=== PATIENT | female | born 1970 | race Caucasian/White ===

== ENCOUNTER 2018-03-11 11:20 | Emergency (ER) | payer BC ==
[2018-03-11 11:42] LABS: ADD MAN DIFF? NO
[2018-03-11 11:44] LABS: BASO % 0 % (0-3); EOS # 0.1 x10^3/uL (0.0-0.7); EOS % 1 % (0-3); HEMATOCRIT 41.6 % (36.0-47.0); HEMOGLOBIN 14.2 g/dL (12.0-15.5); LYMPH # 2.3 x10^3/uL (1.0-4.8); LYMPH % 28 % (24-48); MEAN CORPUSCULAR HEMOGLOBIN 30 pg (25-35); MEAN CORPUSCULAR HGB CONC 34 g/dL (31-37); MEAN CORPUSCULAR VOLUME 89 fL (79-100); MONO # 0.6 x10^3/uL (0.0-1.1); MONO % 7 % (0-9); NEUT # 5.4 x10^3uL (1.8-7.7); NEUT % 64 % (31-73); PLATELET COUNT 226 x10^3/uL (140-400); RED BLOOD COUNT 4.68 x10^6/uL (3.50-5.40); RED CELL DISTRIBUTION WIDTH 12.6 % (11.5-14.5); WHITE BLOOD COUNT 8.5 x10^3/uL (4.0-11.0)
[2018-03-11 11:54] LABS: D-DIMER < 0.27 ug/mlFEU (0.00-0.50)
[2018-03-11 11:55] LABS: ANION GAP 7 (6-14); BLOOD UREA NITROGEN 22 mg/dL (7-20); BUN/CREATININE RATIO 31 (6-20); CALCIUM 9.1 mg/dL (8.5-10.1); CARBON DIOXIDE 27 mmol/L (21-32); CHLORIDE 102 mmol/L (98-107); CREATININE 0.7 mg/dL (0.6-1.0); GFR 90.5; GLUCOSE 103 mg/dL (70-99); POTASSIUM 3.9 mmol/L (3.5-5.1); SODIUM 136 mmol/L (136-145)
[2018-03-11] MEDS: ASPIRIN CHEWABLE 81 MG TABLET. PO (11:56)
[2018-03-11] MEDS: IV NORMAL SALINE 1000ML BAG 1,000 ML IV ×3 (11:56→13:00)
[2018-03-11 12:01] LABS: ALBUMIN 4.1 g/dL (3.4-5.0); ALBUMIN/GLOBULIN RATIO 1.1 (1.0-1.7); ALK PHOS 67 U/L (46-116); ALT (SGPT) 56 U/L (14-59); AST (SGOT) 66 U/L (15-37); MAGNESIUM 2.1 mg/dL (1.8-2.4); TOTAL BILIRUBIN 0.4 mg/dL (0.2-1.0); TOTAL PROTEIN 7.9 g/dL (6.4-8.2)
[2018-03-11 12:03] LABS: TROPONINI < 0.017 ng/mL (0.000-0.055)
[2018-03-11 12:11] LABS: CKMB INDEX 0.1 % (0-4); CREATINE KINASE 1150 U/L (26-192)
== END 2018-03-11 14:00 | disposition home or self-care (01) ==
LOC: ER 11:20
DX: M62.82 Rhabdomyolysis (principal); M54.6 Pain in thoracic spine; R07.89 Other chest pain; F17.210 Nicotine dependence, cigarettes, uncomplicated; E78.00 Pure hypercholesterolemia, unspecified; Z88.1 Allergy status to other antibiotic agents; Z88.2 Allergy status to sulfonamides; Z88.0 Allergy status to penicillin; Z90.710 Acquired absence of both cervix and uterus
CPT/HCPCS: 36415; 71046; 80053; 82553; 83735; 84484; 85025; 85379; 93005; 99285-25; J7030

== ENCOUNTER 2019-03-25 13:21 | Emergency (ER) | payer BC ==
[~2019-03-25] VITALS: Ht 160 cm; Wt 67.6 kg
[~2019-03-25 13:21] MED LIST: ASPI-482 PO; ATOR10TA60 PO; CYCL10TA2 PO; DULO60CA6 PO; OMEP40CA5 PO
[2019-03-25 14:24] LABS: BASO # 0.1 x10^3/uL (0.0-0.2); BASO % 1 % (0-3); EOS # 0.2 x10^3/uL (0.0-0.7); EOS % 3 % (0-3); HEMATOCRIT 41.8 % (36.0-47.0); HEMOGLOBIN 14.4 g/dL (12.0-15.5); LYMPH % 36 % (24-48); MEAN CORPUSCULAR HEMOGLOBIN 30 pg (25-35); MEAN CORPUSCULAR HGB CONC 34 g/dL (31-37); MEAN CORPUSCULAR VOLUME 88 fL (79-100); MONO # 0.6 x10^3/uL (0.0-1.1); MONO % 7 % (0-9); NEUT # 4.4 x10^3uL (1.8-7.7); NEUT % 53 % (31-73); PLATELET COUNT 242 x10^3/uL (140-400); RED BLOOD COUNT 4.75 x10^6/uL (3.50-5.40); RED CELL DISTRIBUTION WIDTH 12.9 % (11.5-14.5); WHITE BLOOD COUNT 8.3 x10^3/uL (4.0-11.0)
[2019-03-25 14:26] LABS: BILIRUBIN,URINE NEGATIVE (NEG); CLARITY,URINE CLEAR; COLOR,URINE YELLOW; NITRITE,URINE NEGATIVE (NEG); PROTEIN,URINE NEGATIVE (NEG-TRACE); UROBILINOGEN,URINE 0.2 mg/dL (0.2 mg/dL)
[2019-03-25] MEDS: ONDANSETRON PF 4 MG/2 ML VIAL. IV ONE (14:27)
[2019-03-25] MEDS: KETOROLAC 30 MG/ML VIAL. IV ONE (14:28)
[2019-03-25] MEDS: IV NORMAL SALINE 1000ML BAG 1,000 ML IV SCH (14:28)
[2019-03-25 14:30] LABS: CALCIUM 9.5 mg/dL (8.5-10.1); CREATININE 0.9 mg/dL (0.6-1.0); GFR 67.4; POTASSIUM 3.8 mmol/L (3.5-5.1)
[2019-03-25 14:35] LABS: ALBUMIN 4.2 g/dL (3.4-5.0); ALBUMIN/GLOBULIN RATIO 1.2 (1.0-1.7); TOTAL BILIRUBIN 0.4 mg/dL (0.2-1.0); TOTAL PROTEIN 7.8 g/dL (6.4-8.2)
--- NOTE | 2019-03-25 14:36 | PHYS DOC ---
Past Medical History Past Medical History: Fibromyalgia, High Cholesterol Past Surgical History: Hysterectomy Additional Past Surgical Histo: CARDIAC CATH Alcohol Use: None Drug Use: None Adult General Chief Complaint Chief Complaint: ABDOMINAL PAIN HPI HPI Patient is a 48 year old female who presents with complaining of abdominal pain. Patient complaining of intermittent episodes of apparently some of abdominal pain for the last 2 weeks that usually happen after eating and lasts about couple hours and associated with nausea and radiation of pain to her shoulder blade. Patient states she usually has a bowel movement every other day and did not have any bowel movement for one week and took laxative one week ago and had episodes of diarrhea that improved spontaneously and re started today again. Patient states the pain is sometimes as high as 9/10 and rated her pain 6/10 at arrival to ER. Patient denies fever and chills, losing weight, fever and chills, urinary symptom. Patient had total hysterectomy and oophorectomy. Review of Systems Review of Systems Constitutional: Denies fever or chills [] Eyes: Denies change in visual acuity, redness, or eye pain [] HENT: Denies nasal congestion or sore throat [] Respiratory: Denies cough or shortness of breath [] Cardiovascular: No additional information not addressed in HPI [] GI: Reports abdominal pain, nausea, vomiting, diarrhea [] : Denies dysuria or hematuria [] Musculoskeletal: Denies back pain or joint pain [] Integument: Denies rash or skin lesions [] Neurologic: Denies headache, focal weakness or sensory changes [] Endocrine: Denies polyuria or polydipsia [] All other systems were reviewed and found to be within normal limits, except as documented in this note. Current Medications Current Medications Current Medications Medications (Trade) Dose Ordered Sig/[facility] Start Time Stop Time Status Last Admin Dose Admin Ketorolac Tromethamine (Toradol 30mg Vial) 30 mg 1X ONCE 03/25/19 14:15 03/25/19 14:18 DC 03/25/19 14:28 30 MG Ondansetron HCl (Zofran) 4 mg 1X ONCE 03/25/19 14:15 03/25/19 14:18 DC 03/25/19 14:27 4 MG Sodium Chloride 1,000 ml @ 1,000 mls/hr Q1H 03/25/19 14:13 03/25/19 15:12 DC 03/25/19 14:28 1,000 MLS/HR Allergies Allergies Allergies Coded Allergies Type Severity Reaction Last Updated Verified sulfamethoxazole Allergy Intermediate Rash 10/02/15 Yes trimethoprim Allergy Intermediate Rash 10/02/15 Yes erythromycin base Adverse Reaction Intermediate rash 10/02/15 Yes Physical Exam Physical Exam Constitutional: Well developed, well nourished, mild distress, non-toxic appearance. [] HENT: Normocephalic, atraumatic, oropharynx moist. Eyes: PERRLA, EOMI, conjunctiva normal, no discharge. [] Neck: Normal range of motion, no tenderness, supple, no stridor. [] Cardiovascular:Heart rate regular rhythm, no murmur [] Lungs & Thorax: Bilateral breath sounds clear to auscultation [] Abdomen: Bowel sounds normal, soft, right upper quadrant guarding, no tenderness, no masses, no pulsatile masses. [] Skin: Warm, dry, no erythema, no rash. [] Back: No tenderness, no CVA tenderness. [] Extremities: No tenderness, no cyanosis, no clubbing, ROM intact, no edema. [] Neurologic: Alert and oriented X 3, normal motor function, normal sensory function, no focal deficits noted. [] Psychologic: Affect normal, judgement normal, mood normal. [] Current Patient Data Vital Signs Vital Signs Date Time Temp Pulse Resp B/P (MAP) Pulse Ox O2 Delivery O2 Flow Rate FiO2 03/25/19 16:27 86 122/85 (97) 95 Room Air 03/25/19 14:02 97.6 20 97.6 Lab Values Laboratory Tests Test 03/25/19 14:03 White Blood Count 8.3 x10^3/uL (4.0-11.0) Red Blood Count 4.75 x10^6/uL (3.50-5.40) Hemoglobin 14.4 g/dL (12.0-15.5) Hematocrit 41.8 % (36.0-47.0) Mean Corpuscular Volume 88 fL (79-100) Mean Corpuscular Hemoglobin 30 pg (25-35) Mean Corpuscular Hemoglobin Concent 34 g/dL (31-37) Red Cell Distribution Width 12.9 % (11.5-14.5) Platelet Count 242 x10^3/uL (140-400) Neutrophils (%) (Auto) 53 % (31-73) Lymphocytes (%) (Auto) 36 % (24-48) Monocytes (%) (Auto) 7 % (0-9) Eosinophils (%) (Auto) 3 % (0-3) Basophils (%) (Auto) 1 % (0-3) Neutrophils # (Auto) 4.4 x10^3uL (1.8-7.7) Lymphocytes # (Auto) 3.0 x10^3/uL (1.0-4.8) Monocytes # (Auto) 0.6 x10^3/uL (0.0-1.1) Eosinophils # (Auto) 0.2 x10^3/uL (0.0-0.7) Basophils # (Auto) 0.1 x10^3/uL (0.0-0.2) Urine Collection Type Unknown Urine Color Yellow Urine Clarity Clear Urine pH 5.0 Urine Specific [place] 1.020 Urine Protein Negative mg/dL (NEG-TRACE) Urine Glucose (UA) Negative mg/dL (NEG) Urine Ketones (Stick) Negative mg/dL (NEG) Urine Blood Trace (NEG) Urine Nitrite Negative (NEG) Urine Bilirubin Negative (NEG) Urine Urobilinogen Dipstick 0.2 mg/dL (0.2 mg/dL) Urine Leukocyte Esterase Negative (NEG) Urine RBC 1-2 /HPF (0-2) Urine WBC Occ /HPF (0-4) Urine Squamous Epithelial Cells Mod /LPF Urine Bacteria Few /HPF (0-FEW) Urine Mucus Mod /LPF Sodium Level 143 mmol/L (136-145) Potassium Level 3.8 mmol/L (3.5-5.1) Chloride Level 105 mmol/L (98-107) Carbon Dioxide Level 27 mmol/L (21-32) Anion Gap 11 (6-14) Blood Urea Nitrogen 15 mg/dL (7-20) Creatinine 0.9 mg/dL (0.6-1.0) Estimated GFR (Cockcroft-Gault) 67.4 BUN/Creatinine Ratio 17 (6-20) Glucose Level 106 mg/dL (70-99) H Calcium Level 9.5 mg/dL (8.5-10.1) Total Bilirubin 0.4 mg/dL (0.2-1.0) Aspartate Amino Transferase (AST) 23 U/L (15-37) Alanine Aminotransferase (ALT) 35 U/L (14-59) Alkaline Phosphatase 74 U/L (46-116) Total Protein 7.8 g/dL (6.4-8.2) Albumin 4.2 g/dL (3.4-5.0) Albumin/Globulin Ratio 1.2 (1.0-1.7) Lipase 134 U/L (73-393) Laboratory Tests 03/25/19 14:03 Laboratory Tests 03/25/19 14:03 EKG EKG [] Radiology/Procedures Radiology/Procedures [facility] [address] [place] [address] IMAGING REPORT Signed PATIENT: ABDIRAHMAN HAMILTON V ACCOUNT: [id number] : 1970 LOCATION: ER AGE: 48 SEX: F EXAM STATUS: REG ER ORD. PHYSICIAN: SOFIA JUNIOR MD REASON: upper abdominal pain after eating PROCEDURE: ABDOMEN LTD Right upper quadrant abdominal ultrasound History: Abdominal pain. Comparison: None. Technique: Transabdominal ultrasound images are obtained. Findings: Patient nothing by mouth x2 hours, limited scan due to overlying bowel gas. Visualized pancreas is unremarkable. Liver is normal in echogenicity. Right hepatic lobe measures 14 cm. Portal flow is hepatopedal. No gallbladder wall thickening or cholelithiasis. Sonographic Weems sign is negative. Common bile duct caliber is normal measuring 4 mm in diameter. The right kidney measures 9.9 cm in length and is without evidence of obstruction. IVC is patent. IMPRESSION: Unremarkable right upper quadrant ultrasound. Electronically signed by: Stevie Adair MD (03/25/2019 3:36 PM) [id number] DICTATED and SIGNED BY: STEVIE ADAIR MD DATE: 03/25/19 1536 Course & Med Decision Making Course & Med Decision Making Pertinent Labs and Imaging studies reviewed. (See chart for details) discharge: I've spoken with the patient and/or caregivers. I've explained the patient's condition, diagnosis and treatment plan based on information available to me at this time. I've answered the patient's and/or caregivers questions and addressed any concerns. The patient and/or caregivers have a good understanding the patient's diagnosis, condition and treatment plan as can be expected at this point. Vital signs have been stabilized. The patient's condition is stable for discharge from the emergency department. The patient will pursue further outpatient evaluation with her primary care provider or other designated consulting physician as outlined in the discharge instructions. Patient and/or caregivers are agreeable to this plan of care and follow-up instructions have been explained in detail. The patient and/or car egivers have received these instructions in written format and expressed understanding of these discharge instructions. The patient and her caregivers are aware that if any significant change in condition or worsening of symptoms should prompt him to immediately return to this of the closest emergency department. If an emergent department is not readily available I would encourage him to call 911. Dragon Disclaimer Dragon Disclaimer This electronic medical record was generated, in whole or in part, using a voice recognition dictation system. Departure Departure Impression: Primary Impression: Abdominal pain Additional Impression: Alternating constipation and diarrhea Disposition: HOME, SELF-CARE (at 1608) Condition: IMPROVED Referrals: ASHA HELMS MD (PCP) Patient Instructions: Abdominal Pain, Diarrhea Additional Instructions: Drink plenty of liquids Follow-up with your primary care physician in 2-3 days for evaluation of possible IBS (irritable bowel syndrome) Return to ER if not getting better Scripts Hydrocodone/Apap 5-325 (NORCO 5-325 TABLET) 1 Each Tablet 1 TAB PO PRN Q6HRS PRN for PAIN, #14 TAB 0 Refills Prov: SOFIA JUNIOR MD 03/25/19 Problem Qualifiers Primary Impression: Abdominal pain Abdominal location: epigastric Qualified Codes: R10.13 - Epigastric pain SOFIA JUNIOR MD March 25, 2019 14:36
[2019-03-25 14:54] LABS: BACTERIA,URINE FEW /HPF (0-FEW); SQUAMOUS EPITHELIAL CELL,UR MOD /LPF; WBC,URINE OCC /HPF (0-4)
--- NOTE | 2019-03-25 15:39 | RAD ---
Right upper quadrant abdominal ultrasound History: Abdominal pain. Comparison: None. Technique: Transabdominal ultrasound images are obtained. Findings: Patient nothing by mouth x2 hours, limited scan due to overlying bowel gas. Visualized pancreas is unremarkable. Liver is normal in echogenicity. Right hepatic lobe measures 14 cm. Portal flow is hepatopedal. No gallbladder wall thickening or cholelithiasis. Sonographic Weems sign is negative. Common bile duct caliber is normal measuring 4 mm in diameter. The right kidney measures 9.9 cm in length and is without evidence of obstruction. IVC is patent. IMPRESSION: Unremarkable right upper quadrant ultrasound. Electronically signed by: Stevie Adair MD (03/25/2019 3:36 PM) [id number]
[2019-03-25] MEDS ORDERED: HYDR-3164 PO (16:11)
[2019-03-25 16:27] VITALS: BP 122/85
== END 2019-03-25 16:55 | disposition home or self-care (01) ==
LOC: ER 13:21
DX: K58.2 Mixed irritable bowel syndrome (principal); R11.2 Nausea with vomiting, unspecified; R50.9 Fever, unspecified; E78.00 Pure hypercholesterolemia, unspecified; Z90.710 Acquired absence of both cervix and uterus; Z88.2 Allergy status to sulfonamides; Z88.1 Allergy status to other antibiotic agents
CPT/HCPCS: 36415; 76705; 80053; 81001; 83690; 85025; 96361; 96374; 96375; 99285; J1885; J2405; J7030

== ENCOUNTER 2019-08-11 08:59 | Day surgery (SDC) | payer BC ==
[~2019-08-11] VITALS: Ht 160 cm; Wt 68.0 kg
[~2019-08-11 08:59] MED LIST changes: +DEXAMETHASONE SOD PHOS 4 MG/ML VIAL ONE; +HYDR-3164 PO; +HYDROmorphone 2 MG/ML VIAL IV PRN; +IV RINGERS,LACTATED 1000ML 1,000 ML IV SCH; +LIDOCAINE 1% PF 2 ML VIAL. ID PRN; +LIDOCAINE 2% PF 5 ML VIAL. ONE; +MORPHINE SULFATE 2 MG/ML VIAL. IV PRN; +OMEP40CA45 PO; -OMEP40CA5 PO; +ONDANSETRON PF 4 MG/2 ML VIAL. IV PRN; +ONDANSETRON PF 4 MG/2 ML VIAL. ONE; +PROCHLORPERAZINE 10 MG/2 ML VIAL. IV PRN; +PROPOFOL 20 ML IV ONE; +fentaNYL PF VIAL 100 MCG/2 ML VIAL IV PRN; +fentaNYL PF VIAL 100 MCG/2 ML VIAL ONE
[2019-08-11] MEDS ORDERED: MIDAZOLAM HCL/PF 2 MG/2 ML VIAL. ONE (09:50)
[2019-08-11] MEDS ORDERED: KETOROLAC 30 MG/ML VIAL. ONE (09:51)
--- NOTE | 2019-08-11 09:51 | DISCH ---
DISCHARGE INSTRUCTIONS Condition on Discharge Condition on Discharge: Stable Activity After Discharge Activity Instructions for Disc: Activity as tolerated Bathing Instructions: No Tub Bath until see Lifting Instructions after Dis: No heavy lifting, No pulling or pushing, Do not lift >10 pounds Driving Instructions after Dis: Do not drive today Weight Bearing Status after Di: Full weight bearing, As tolerated Diet after Discharge Diet after Discharge: Cardiac Diet Texture: Regular Liquid Texture: Thin Liquid Wound Incision Care Wound/Incision Care: Ice to area for comfort, Keep wound/cast CDI, Keep wound e levated, Change dressing Other wound/incision instructi: okay to change dressing after 2 days Checks after Discharge Checks after discharge: Check blood press - daily, Check your Temp as needed Contacting the DRCamacho after DC Call your doctor for: Concerns you may have Follow-Up Follow up with: Perla in 2 weeks NAEL FARRELL II, MD Aug 11, 2019 09:51
[2019-08-11] MEDS ORDERED: LIDOCAINE 1% PF 30 ML VIAL. ONE (09:58)
[2019-08-11] MEDS ORDERED: LIDOCAINE 1% 20 ML VIAL. ONE (10:16)
[2019-08-11] MEDS ORDERED: BUPIVACAINE MPF 0.5% 30 ML VIAL. ONE (10:16)
[2019-08-11] MEDS ORDERED: HYDR-3164 PO (11:30)
[2019-08-11] MEDS ORDERED: DOCU-109 PO (11:30)
--- NOTE | 2019-08-11 11:30 | PDOC4 ---
Operative Note Operative Note Date of procedure: 08/11/2019 Surgeon: Reji Farrell Preoperative diagnosis: Right carpal tunnel syndrome Postoperative diagnosis: Same Procedure performed: Open right carpal tunnel release Anesthesia: Abhinav block with sedation Findings: normal appearing median nerve Blood loss: 2 ml Tourniquet time: 20 minutes Complications: none Reason for procedure: Patient is very pleasant individual who has had long- standing symptoms consistent with their electromyographically proven EMG diagnosis of carpal tunnel syndrome. We had tried and failed conservative therapies and had a discussion of the risks, benefits, alternatives to the above surgery and they wished to proceed. Description of procedure: Patient was greeted in the preoperative area by myself for the correct extremity was verified and marked. They were then taken back to the operative suite, antibiotics were started as they were brought back. Once in the operating room, patient was transferred gently supine to the operating room table. The hand board attached and was applied to the operating room table. She underwent successful induction of a [place] block followed by sedation. The right upper extremity was then prepped and draped in our usual sterile fashion and we conducted our standard preoperative timeout. After this, I made an incision over the transverse carpal ligament from the distal wrist crease into the palm through a palmar crease. I incised skin with a scalpel and dissected subc utaneous tissue with a curved hemostat. I used bipolar cautery for hemostasis. Identified the palmar fascia and incised this in line with the skin incision and then placed myself retaining retractor. I identified the transverse carpal ligament and incised this with a scalpel. I then placed a Ragnell retractor in the distal portion of the incision, spread above and below small remaining portion of the transverse carpal ligament and transected this with a tenotomy scissors into the palm. After this, I repeated this maneuver and an ulnar directed fashion to release the distal antebrachial fascia at the proximal portion of the incision. I then palpated along the course of the median nerve with the tip of the tenotomies to help ensure that accomplished a complete release. The operative field was then irrigated out with sterile saline. After this, skin was closed with 3-0 nylon in a mattress fashion. A sterile bulky soft dressing was then applied to the patient�s hand and wrist. The tourniquet was let down, hemostasis had been achieved with electrocautery. Patient tolerated surgery well. No complications. At the conclusion, they were awakened and transferred gently supine to the recovery room cart and taken to the PACU in a stable and extubated condition. Postoperative plan is to discharge patient home. Frequent range of motion at digits and wrist was encouraged. The patient was instructed not to lift anything heavy. We will see her back in 2 weeks, sooner should a problem arise. REJI FARRELL II, MD Aug 11, 2019 11:30
[2019-08-11] MEDS ORDERED: ONDA8TAB9 SL (11:31)
[2019-08-11 11:50] VITALS: BP 125/85
[2019-08-11] MEDS ORDERED: HYDROcodone/APAP 5/325MG 1 TAB TABLET PO ONE (12:00)
== END 2019-08-11 11:55 | disposition home or self-care (01) ==
LOC: SURG 08:59
PROVIDERS: ATTEND Orthopaedic Surgery Sports Medicine
DX: G56.01 Carpal tunnel syndrome, right upper limb (principal); G43.909 Migraine, unspecified, not intractable, without status migrainosus; I10 Essential (primary) hypertension; E78.00 Pure hypercholesterolemia, unspecified; K21.9 Gastro-esophageal reflux disease without esophagitis; E66.9 Obesity, unspecified; F41.9 Anxiety disorder, unspecified; Z72.0 Tobacco use; Z87.39 Personal history of other diseases of the musculoskeletal system and connective tissue; Z90.710 Acquired absence of both cervix and uterus; Z98.890 Other specified postprocedural states
CPT/HCPCS: 64721; A7015; J0690; J1100; J1885; J2001; J2250; J2405; J2704; J3010; J3490

== ENCOUNTER 2019-08-25 05:49 | Day surgery (SDC) | payer BC ==
[~2019-08-25] VITALS: Ht 160 cm; Wt 68.0 kg
[~2019-08-25 05:49] MED LIST changes: -DEXAMETHASONE SOD PHOS 4 MG/ML VIAL ONE; +DOCU-109 PO; -HYDROmorphone 2 MG/ML VIAL IV PRN; -IV RINGERS,LACTATED 1000ML 1,000 ML IV SCH; -LIDOCAINE 1% PF 2 ML VIAL. ID PRN; -LIDOCAINE 2% PF 5 ML VIAL. ONE; -MORPHINE SULFATE 2 MG/ML VIAL. IV PRN; +ONDA8TAB9 SL; -ONDANSETRON PF 4 MG/2 ML VIAL. IV PRN; -ONDANSETRON PF 4 MG/2 ML VIAL. ONE; -PROCHLORPERAZINE 10 MG/2 ML VIAL. IV PRN; -PROPOFOL 20 ML IV ONE; -fentaNYL PF VIAL 100 MCG/2 ML VIAL IV PRN; -fentaNYL PF VIAL 100 MCG/2 ML VIAL ONE
[2019-08-25] MEDS ORDERED: PROCHLORPERAZINE 10 MG/2 ML VIAL. IV PRN (07:00)
[2019-08-25] MEDS ORDERED: MORPHINE SULFATE 2 MG/ML VIAL. IV PRN (07:00)
[2019-08-25] MEDS ORDERED: ONDANSETRON PF 4 MG/2 ML VIAL. IV PRN (07:00)
[2019-08-25] MEDS ORDERED: LIDOCAINE 1% 20 ML VIAL. ONE (07:00)
[2019-08-25] MEDS ORDERED: HYDROmorphone 2 MG/ML VIAL IV PRN (07:00)
[2019-08-25] MEDS ORDERED: IV RINGERS,LACTATED 1000ML 1,000 ML IV SCH (07:00)
[2019-08-25] MEDS ORDERED: fentaNYL PF VIAL 100 MCG/2 ML VIAL IV PRN ×2 (07:00)
[2019-08-25] MEDS ORDERED: BUPIVACAINE MPF 0.5% 30 ML VIAL. ONE (07:01)
--- NOTE | 2019-08-25 07:17 | DISCH ---
DISCHARGE INSTRUCTIONS Condition on Discharge Condition on Discharge: Stable Activity After Discharge Activity Instructions for Disc: Activity as tolerated Other activity instructions: wiggle fingers Bathing Instructions: No Tub Bath until see Lifting Instructions after Dis: No heavy lifting, No pulling or pushing, Do not lift >10 pounds Driving Instructions after Dis: Do not drive today Weight Bearing Status after Di: Full weight bearing, As tolerated Diet after Discharge Diet after Discharge: Cardiac, Regular Diet Texture: Regular Liquid Texture: Thin Liquid Wound Incision Care Wound/Incision Care: Ice to area for comfort, Keep wound/cast CDI, Keep wound elevated, Change dressing Other wound/incision instructi: ok to change dressing after 2 days Checks after Discharge Checks after discharge: Check blood press - daily, Check your Temp as needed Contacting the DRCamacho after DC Call your doctor for: Concerns you may have Follow-Up Follow up with: Perla in 2 wks NAEL FARRELL II, MD Aug 25, 2019 07:17
[2019-08-25] MEDS ORDERED: LIDOCAINE 1% PF 30 ML VIAL. ONE (07:21)
[2019-08-25] MEDS ORDERED: MIDAZOLAM HCL/PF 2 MG/2 ML VIAL. ONE (07:23)
[2019-08-25] MEDS ORDERED: 0.9 % SODIUM CHLORIDE 20 ML VIAL. IJ ONE (07:23)
[2019-08-25] MEDS ORDERED: LIDOCAINE 2% PF 5 ML VIAL. ONE (07:43)
[2019-08-25] MEDS ORDERED: PROPOFOL 20 ML IV ONE (07:43)
--- NOTE | 2019-08-25 08:25 | PDOC4 ---
Operative Note Operative Note Date of procedure: 08/25/2019 Surgeon: Reji Farrell Preoperative diagnosis: Left carpal tunnel syndrome Postoperative diagnosis: Same Procedure performed: Open left carpal tunnel release Anesthesia: [place] block with sedation Findings: normal appearing median nerve Blood loss: 2 mL Tourniquet time: 25 minutes Complications: none Reason for procedure: Patient is very pleasant individual who has had long- standing symptoms consistent with their electromyographically proven EMG diagnosis of carpal tunnel syndrome. We had tried and failed conservative therapies and had a discussion of the risks, benefits, alternatives to the above surgery and they wished to proceed. She had undergone the contralateral procedure and felt like she had recovered enough to proced. Description of procedure: Patient was greeted in the preoperative area by myself for the correct extremity was verified and marked. They were then taken back to the operative suite, antibiotics were started as a were brought back. Once in the operating room, patient was transferred gently supine to the operating room table. The hand board attached and was applied to the operating room table. She underwent successful induction of a Abhinav block followed by sedation. The left upper extremity was then prepped and draped in our usual sterile fashion and we conducted our standard preoperative timeout.after this, I made an incision over the transverse carpal ligament from the distal wrist crease into the palm through a palmar crease. I incised skin with a scalpel and dissected subcutaneous tissue with a curved hemostat. I used bipolar cautery for hemostasis. Identified the palmar fascia and incised this in line with the skin incision and then placed myself retaining retractor. I identified the transverse carpal ligament and incised this with a scalpel. I then placed a Ragnell retractor in the distal portion of the incision, spread above and below small remaining portion of the transverse carpal ligament and transected this with a tenotomy scissors into the palm. After this, I repeated this maneuver and an ulnar directed fashion to release the distal antebrachial fascia at the proximal portion of the incision. I then palpated along the course of the median nerve with the tip of the tenotomies to help ensure that accomplished a complete release. The operative field was then irrigated out with sterile saline. After this, skin was closed with 3-0 nylon in a mattress fashion. A sterile bulky soft dressing was then applied to the patients hand and wrist. The tourniquet was let down, hemostasis had been achieved with electrocautery. I then removed the sutures from her left wrist. Patient tolerated surgery well. No complications. At the conclusion, they were awakened and transferred gently supine to the recovery room cart and taken to the PACU in a stable and extubated condition. Postoperative plan is to discharge patient home. Frequent range of motion at digits and wrist was encouraged. The patient was instructed not to lift anything heavy. We will see her back in 2 weeks, sooner should a problem arise. REJI FARRELL II, MD Aug 25, 2019 08:24
[2019-08-25] MEDS ORDERED: HYDROcodone/APAP 5/325MG 1 TAB TABLET PO PRN (08:30)
[2019-08-25 08:50] VITALS: BP 120/86
== END 2019-08-25 09:05 | disposition home or self-care (01) ==
LOC: SURG 05:49
PROVIDERS: ATTEND Orthopaedic Surgery Sports Medicine
DX: G56.02 Carpal tunnel syndrome, left upper limb (principal); E78.5 Hyperlipidemia, unspecified; K21.9 Gastro-esophageal reflux disease without esophagitis; M19.90 Unspecified osteoarthritis, unspecified site; F17.210 Nicotine dependence, cigarettes, uncomplicated; G43.909 Migraine, unspecified, not intractable, without status migrainosus; I10 Essential (primary) hypertension; E78.00 Pure hypercholesterolemia, unspecified; M79.7 Fibromyalgia; F41.9 Anxiety disorder, unspecified; Z98.890 Other specified postprocedural states; Z90.710 Acquired absence of both cervix and uterus; Z72.89 Other problems related to lifestyle; Z88.1 Allergy status to other antibiotic agents; Z88.8 Allergy status to other drugs, medicaments and biological substances
CPT/HCPCS: 64721; J0690; J2001; J2250; J2704; J3010; J3490